=== PATIENT | male | born 1980 | race Caucasian/White ===

== ENCOUNTER 2017-09-17 13:59 | Emergency (ER) | payer SELFPAY, OTHER ==
[2017-09-17 14:27] LABS: BILIRUBIN,URINE NEGATIVE (NEG); COLOR,URINE YELLOW; GLUCOSE,URINE NEGATIVE (NEG); NITRITE,URINE NEGATIVE (NEG); PROTEIN,URINE NEGATIVE (NEG-TRACE); UROBILINOGEN,URINE 0.2 mg/dL (0.2 mg/dL)
[2017-09-17] MEDS: ONDANSETRON PF 4 MG/2 ML VIAL. IV (14:38)
[2017-09-17] MEDS: IV NORMAL SALINE 1000ML BAG 1,000 ML IV (14:38)
[2017-09-17 14:39] LABS: CLARITY,URINE CLEAR
[2017-09-17] MEDS: KETOROLAC 30 MG/ML INJ. IV (14:39)
[2017-09-17] MEDS: TAMSULOSIN 0.4 MG CAP.ER.24H. PO (14:39)
[2017-09-17] MEDS: fentaNYL PF VIAL 100 MCG/2 ML VIAL IV (14:39)
[2017-09-17 14:40] LABS: ADD MAN DIFF? NO
[2017-09-17 14:41] LABS: AMPHETAMINE/METHAMPHETAMINE POS (NEG); BARBITURATES NEG (NEG); BENZODIAZEPINES NEG (NEG); CANNABINOIDS POS (NEG); COCAINE NEG (NEG); ETHANOL, URINE NEG (NEG); METHADONE NEG (NEG); OPIATES NEG (NEG); PHENCYCLIDINE NEG (NEG)
[2017-09-17 14:43] LABS: BASO # 0.1 x10^3/uL (0.0-0.2); BASO % 1 % (0-3); EOS # 0.3 x10^3/uL (0.0-0.7); EOS % 3 % (0-3); HEMATOCRIT 46.8 % (39.0-53.0); HEMOGLOBIN 16.2 g/dL (13.0-17.5); LYMPH # 2.6 x10^3/uL (1.0-4.8); LYMPH % 34 % (24-48); MEAN CORPUSCULAR HEMOGLOBIN 31 pg (25-35); MEAN CORPUSCULAR HGB CONC 35 g/dL (31-37); MEAN CORPUSCULAR VOLUME 91 fL (79-100); MONO # 0.5 x10^3/uL (0.0-1.1); MONO % 7 % (0-9); NEUT # 4.3 x10^3uL (1.8-7.7); NEUT % 56 % (31-73); PLATELET COUNT 185 x10^3/uL (140-400); RED BLOOD COUNT 5.15 x10^6/uL (4.30-5.70); RED CELL DISTRIBUTION WIDTH 12.5 % (11.5-14.5); WHITE BLOOD COUNT 7.7 x10^3/uL (4.0-11.0)
[2017-09-17 14:44] LABS: BACTERIA,URINE 0 /HPF (0-FEW); SQUAMOUS EPITHELIAL CELL,UR OCC /LPF; WBC,URINE RARE /HPF (0-4)
[2017-09-17 14:51] LABS: ANION GAP 7 (6-14); BLOOD UREA NITROGEN 8 mg/dL (8-26); BUN/CREATININE RATIO 9 (6-20); CALCIUM 9.3 mg/dL (8.5-10.1); CARBON DIOXIDE 31 mmol/L (21-32); CHLORIDE 102 mmol/L (98-107); CREATININE 0.9 mg/dL (0.7-1.3); GLUCOSE 94 mg/dL (70-99); POTASSIUM 3.5 mmol/L (3.5-5.1); SODIUM 140 mmol/L (136-145)
[2017-09-17 14:56] LABS: ETHANOL < 10 mg/dL (0-10)
[2017-09-17 14:59] LABS: ALBUMIN 3.7 g/dL (3.4-5.0); ALK PHOS 90 U/L (46-116); ALT (SGPT) 20 U/L (16-63); AST (SGOT) 13 U/L (15-37); LIPASE 106 U/L (73-393); TOTAL BILIRUBIN 0.6 mg/dL (0.2-1.0); TOTAL PROTEIN 7.3 g/dL (6.4-8.2)
== END 2017-09-17 16:26 | disposition home or self-care (01) ==
LOC: ER 16:26
DX: N20.0 Calculus of kidney (principal)
CPT/HCPCS: 36415; 74176; 80053; 80307; 81001; 83690; 85025; 96374; 96375; 99285-25; G0480; J1885; J2405; J3010; J7030

== ENCOUNTER 2018-11-02 02:07 | Emergency (ER) | payer SELFPAY ==
[~2018-11-02] VITALS: Ht 190.5 cm; Wt 74.8 kg
[~2018-11-02 02:07] MED LIST: CYCL10TA2 PO; NAPR500T8 PO; TAMS0.4C97 PO
[2018-11-02 02:13] VITALS: BP 151/86
[2018-11-02] MEDS ORDERED: PRED20TA PO (02:27)
[2018-11-02] MEDS ORDERED: METH-38 PO (02:27)
[2018-11-02] MEDS ORDERED: OXYC1TAB15 PO (02:27)
--- NOTE | 2018-11-02 02:27 | PHYS DOC ---
Past Medical History Past Medical History: No Pertinent History Past Surgical History: Other Additional Past Surgical Histo: LEFT KNEE Alcohol Use: Rarely Drug Use: None Adult General Chief Complaint Chief Complaint: LOWER BACK PAIN OR INJURY [facility] HPI 38-year-old male presents with 2 week history of low back pain. Patient states that about 2 weeks ago he lifted up a heavy tool box and felt his back tighten up. He has taken some anti-inflammatories at home without relief. He states currently the pain is severe. The pain also radiates into his right buttocks down to his right foot. Over the last 2 days he just doesn't feel like he can bear weight on the right leg secondary to pain. He denies any saddle paresthesias or any bowel or bladder dysfunction.[] Review of Systems Review of Systems Constitutional: Denies fever or chills [] Eyes: Denies change in visual acuity, redness, or eye pain [] HENT: Denies nasal congestion or sore throat [] Respiratory: Denies cough or shortness of breath [] Cardiovascular: No additional information not addressed in HPI [] GI: Denies abdominal pain, nausea, vomiting, bloody stools or diarrhea [] : Denies dysuria or hematuria [] Musculoskeletal: Per history of present illness[] Integument: Denies rash or skin lesions [] Neurologic: Right-sided sciatica[] Endocrine: Denies polyuria or polydipsia [] All other systems were reviewed and found to be within normal limits, except as documented in this note. Allergies Allergies Allergies Coded Allergies Type Severity Reaction Last Updated Verified No Known Drug Allergies 05/25/14 No Physical Exam Physical Exam Constitutional: Well developed, well nourished, moderate distress, non-toxic appearance. [] HENT: Normocephalic, atraumatic, bilateral external ears normal, oropharynx moist, no oral exudates, nose normal. [] Eyes: PERRLA, EOMI, conjunctiva normal, no discharge. [] Neck: Normal range of motion, no tenderness, supple, no stridor. [] Cardiovascular:Heart rate regular rhythm, no murmur [] Lungs & Thorax: Bilateral breath sounds clear to auscultation [] Abdomen: Bowel sounds normal, soft, no tenderness, no masses, no pulsatile masses. [] Skin: Warm, dry, no erythema, no rash. [] Back: Right side paraspinal muscle spasm no midline vertebral tenderness[] Extremities: No tenderness, no cyanosis, no clubbing, ROM intact, no edema. [] Neurologic: Diminished patellar reflex on the right positive straight leg raise on the right. [] Psychologic: Anxious. [] EKG EKG [] Radiology/Procedures Radiology/Procedures [] Course & Med Decision Making Course & Med Decision Making Pertinent Labs and Imaging studies reviewed. (See chart for details) [ED course: Evaluation reveals a 38-year-old male who is in considerable distress secondary to right sided sciatica. He was given Decadron, Norflex and Percocet during his stay in the department. I'll provide him with some steroids to take at home. Also given some muscle relaxers and pain medication. I've encouraged the patient to follow with his primary care physician have an MRI done.] Dragon Disclaimer Dragon Disclaimer This electronic medical record was generated, in whole or in part, using a voice recognition dictation system. Departure Departure Impression: Primary Impression: Sciatica of right side Disposition: 01 HOME, SELF-CARE Condition: STABLE Referrals: NO PCP (PCP) Patient Instructions: Sciatica, Sciatica with [facility] Additional Instructions: You'll need to get an MRI scan done as an outpatient. It may be of interest to follow with Dr. Dallas Newsome who may be able to help you get a little more comfort. His office phone number is [phone]. Scripts Methocarbamol (ROBAXIN-750) 750 Mg Tablet 1 TAB PO BID for Back Pain, #60 TAB Prov: DOLLY VORA DO 11/02/18 Prednisone (PREDNISONE) 20 Mg Tablet 3 TAB PO DAILY PRN for SCIATICA for 5 Days, #15 TAB Prov: DOLLY VORA DO 11/02/18 Oxycodone/Apap 5-325 (PERCOCET 5-325 MG TABLET ) 1 Each Tablet 1 TAB PO PRN Q6HRS PRN for PAIN, #20 TAB 0 Refills Prov: DOLLY VORA DO 11/02/18 DOLLY VORA DO Nov 02, 2018 02:27
[2018-11-02] MEDS ORDERED: DEXAMETHASONE SOD PHOS 20 MG/5 ML VIAL. IM ONE (03:00)
[2018-11-02] MEDS ORDERED: oxyCODONE/APAP 10/325 1 TAB TABLET PO ONE (03:00)
[2018-11-02] MEDS ORDERED: ORPHENADRINE CITRATE 60 MG/2 ML VIAL. IM ONE (03:00)
== END 2018-11-02 02:50 | disposition home or self-care (01) ==
LOC: ER 02:07
DX: M54.41 Lumbago with sciatica, right side (principal)
CPT/HCPCS: 96372; 99284; J1100; J2360